=== PATIENT | female | born 1935 | race Caucasian/White ===

== ENCOUNTER 2019-06-12 09:14 | Day surgery (SDC) | payer MEDICARE, BC ==
[~2019-06-12 09:14] MED LIST: Buffered Lidocaine 1% SYRIN 1 ml INTRADERM ONE
[2019-06-12] MEDS ORDERED: Midazolam 2 mg/2 ml VIAL 1 mg/ml 2 ml VIAL (2 mg) ONE (11:04)
[2019-06-12 12:27] VITALS: BP 152/69
[2019-06-12] MEDS ORDERED: Povidone Iodine 5% OPTH 30 ML BTL ONE (13:42)
[2019-06-12] MEDS ORDERED: Lidocaine 2% w/ EPI 1:200,000 MPF 20 ML SDV VIAL ONE (13:42)
[2019-06-12] MEDS ORDERED: Phenylephrine 2.5% OPHTH SOL 2 ml BTL ONE (13:42)
[2019-06-12] MEDS ORDERED: Cyclopentolate 1% OPTH.SOL 2 ML BTL ONE (13:42)
[2019-06-12] MEDS ORDERED: Neomycin/Polymy/Dex OPTH.SUSP MAXITROL 0.1% 5 ML ONE (13:42)
[2019-06-12] MEDS ORDERED: Ketorolac 0.5% OPHTH (NF) 0.5 % 5 ML BTL ONE (13:42)
[2019-06-12] MEDS ORDERED: Lidocaine 1% MPF 5 ML VIAL ONE (13:42)
[2019-06-12] MEDS ORDERED: Proparacaine 0.5% OPHTH.SOL 15 ML BTL ONE (13:43)
== END 2019-06-12 11:45 | disposition home or self-care (01) ==
LOC: OREAST 09:14
PROVIDERS: ATTEND Specialist
DX: H25.811 Combined forms of age-related cataract, right eye (principal); H35.3112 Nonexudative age-related macular degeneration, right eye, intermediate dry stage; H35.3222 Exudative age-related macular degeneration, left eye, with inactive choroidal neovascularization; Z85.828 Personal history of other malignant neoplasm of skin; E03.9 Hypothyroidism, unspecified

== ENCOUNTER 2023-12-28 08:04 | Observation (INO) ==
[~2023-12-28 08:04] MED LIST changes: -Buffered Lidocaine 1% SYRIN 1 ml INTRADERM ONE; +Metoclopramide 5 MG/ML VIAL (10 mg) IV PRN; +NS 0.45% 1000 ml BAG 1,000 ML IV SCH; +Naloxone 0.4 mg VIAL 0.4 mg/ml 1 ml VIAL IV PRN; +Ondansetron 4 mg VIAL 2 MG/ML 2 ml VIAL IV PRN; +fentaNYL 100 mcg/2 ml 50 MCG/ML VIAL IV PRN
[2023-12-28] MEDS ORDERED: Lidocaine 2% PF 5 ML VIAL ONE (08:14)
[2023-12-28] MEDS ORDERED: Propofol 10 MG/ML 20 ML BTL ONE ×2 (08:14→12:48)
[2023-12-28] MEDS ORDERED: Phenylephrine IV 10 MG/ML 1 ml VIAL ONE (08:14)
[2023-12-28] MEDS ORDERED: Bupivacaine 0.5% PF 10 ML SDV VIAL INJ ONE (08:14)
[2023-12-28] MEDS ORDERED: ceFAZolin 2 GM in NS PREMIX 2 GM/100 ML BAG IVPB ONE (08:28)
[2023-12-28] MEDS ORDERED: Tranexamic Acid 1 GM/100ML BAG 2,000 MG/200 ML BAG IV ONE (08:28)
[2023-12-28 08:50] LABS: Rapid COVID-19 Molecular Undetected (Undetected)
[2023-12-28] MEDS: Lactated Ringers 1000 ml BAG 1,000 ML IV SCH ×2 (08:59→15:25)
[2023-12-28] MEDS ORDERED: Bupivacaine 0.5% 50 ML MDV VIAL ONE (10:21)
[2023-12-28] MEDS ORDERED: ROPIVACAINE 5 MG/ML 30 ML BTL (0.5%) ONE (10:23)
[2023-12-28] MEDS ORDERED: Glycopyrrolate IV 0.2 MG/ML 1 ML VIAL ONE (11:44)
[2023-12-28] MEDS ORDERED: fentaNYL 100 mcg/2 ml 50 MCG/ML VIAL ONE ×2 (12:29→13:22)
[2023-12-28] MEDS ORDERED: KETAMINE HCL 10 MG/ML 20 ml VIAL (200 MG) ONE (12:52)
[2023-12-28] MEDS ORDERED: Magnesium Hydroxide LIQ 30 ML UDC PO PRN (13:48)
[2023-12-28] MEDS ORDERED: Ondansetron 4 mg VIAL 2 MG/ML 2 ml VIAL IV PRN (13:48)
[2023-12-28] MEDS ORDERED: Lactulose 30 ml UDC PO PRN (13:48)
[2023-12-28] MEDS ORDERED: Calcium Carb (TUMS) 500 mg CHEW TAB PO PRN (13:48)
[2023-12-28] MEDS ORDERED: Ondansetron ODT 4 mg TAB 4 MG TAB PO PRN (13:48)
[2023-12-28] MEDS ORDERED: Morphine 2 MG/ML SYRINGE IV PRN (13:48)
[2023-12-28] MEDS: Scopolamine 1 mg/72hr PATCH TRANSDERM ONE (15:47)
[2023-12-28] MEDS: Acetaminophen IV 1 GM/100ML 1,000 MG/100 ML BAG IV ONE (15:47)
[2023-12-28] MEDS: Buffered Lidocaine 1% SYRIN 1 ml INTRADERM ONE (15:48)
[2023-12-28] MEDS: Polyethyl Glycol/Propylene Gly OPHTH.SOLN BOTH EYES SCH (21:05)
[2023-12-28] MEDS: Magnesium Hydroxide LIQ 30 ML UDC PO SCH (21:05)
[2023-12-28] MEDS: ceFAZolin 2 GM in NS PREMIX 2 GM/100 ML BAG IVPB SCH (21:09)
[2023-12-28] MEDS: Multivitamins/Mins AREDS2 (NF) CAP PO SCH (21:45)
[2023-12-29 08:11] LABS: Hematocrit 35.6 % (35-45); Hemoglobin 12.3 g/dL (11.5-14.3); Mean Platelet Volume 7.5 fL (7.5-11.2); Platelet Count 196 10^3/uL (150-450)
[2023-12-29] MEDS: Vitamin THERAPEUTIC TAB PO SCH (08:27)
[2023-12-29] MEDS: Aspirin EC 325 mg TAB.EC PO SCH (08:27)
[2023-12-29 08:29] LABS: Calcium 8.4 mg/dL (8.6-10.3); Creatinine, Serum 0.96 mg/dL (0.51-0.95); Potassium 4.5 mmol/L (3.5-5.0); eGFR CKD-EPI 57.6 (>60)
[2023-12-29 09:59] VITALS: BP 105/54
== END 2023-12-29 14:08 ==
LOC: OR 08:04 → SSU 08:04
PROVIDERS: ADMIT Orthopaedic Surgery Adult Reconstructive Orthopaedic Surgery; ATTEND Orthopaedic Surgery Adult Reconstructive Orthopaedic Surgery